=== PATIENT | male | born 1950 | race Caucasian/White ===

== ENCOUNTER 2016-07-13 13:58 | Emergency (ER) | payer MEDICARE, OTHER ==
[~2016-07-13] VITALS: Ht 188 cm; Wt 118.2 kg
[~2016-07-13 13:58] MED LIST: ASCO100T11 PO; ASPI-973 PO; GARL10002 PO; HYDR25TA4 PO; LISI-571 PO; METF500T4 PO; MULT-1018 PO; OMEG1CAP25 PO
[2016-07-13 14:15] VITALS: BP 189/95; PULSE 62; RESP 15; O2SAT 97
--- NOTE | 2016-07-13 15:24 | ED.REPORT ---
HPI-Dizziness / Weakness Date of Service Jul 13, 2016 ED Provider: Dae Briggs MD Pt is a 65 year old male with a hx of HTN, DM II and high cholesterol presenting to the ED complaining of sudden onset dizziness onset this morning. He reports that he felt fine when he woke up at 0830 today. He describes the dizziness as everything in the room was spinning, and he became nauseated and diaphoretic. Denies ringing in his ears, chest pain, numbness, headache, double vision. The dizziness is exacerbated by sitting upright. Denies previous similar symptoms. He states that he was bradycardic when his symptoms began. Nursing Notes Stated Complaint: DIZZY/LOW PULSE Chief Complaint: General Complaint Nursing Notes Reviewed: Yes Allergies: Coded Allergies: Penicillins (Verified Allergy, Severe, Rash,Itching,, 03/25/16) TOLERATES ANCEF Scheduled Ascorbic Acid (Vitamin C) 100 Mg Tablet 1,000 MG PO DAILY Aspirin (Aspirin) 81 Mg Tablet 81 MG PO DAILY Garlic (Garlic) 1,000 Mg Capsule 1,000 MG PO DAILY Hydrochlorothiazide (Hydrochlorothiazide) 25 Mg Tablet 25 MG PO DAILY Lisinopril (Lisinopril) 5 Mg Tablet 10 MG PO DAILY Meclizine (Bonine) 25 Mg Tab.chew 25 MG PO TID Metformin (Metformin) 500 Mg Tablet 500 MG PO BID Multivitamin (Multi Vitamin Daily) 1 Each Tablet 1 EACH PO DAILY [place]-3 Fatty Acids/Fish Oil ([place] 3 Fish Oil Softgel) 1 Each Capsule.dr 1 EACH PO DAILY General Time Seen by MD: 15:05 Chief Complaint Dizzy Hx Obtained From: Patient Arrived By: Walk-in Onset Occurred: Just prior to arrival Symptom Duration: Since onset Location: : No pain Severity: Current: No pain currently Severity: Maximum: No pain Recent Healthcare: No recent doctor visit, No recent hospitalization Similar Sx Previous: No Past Medical History Past Medical History Reports: Diabetes mellitus, Hyperlipidemia, Hypertension, Denies: Coronary artery disease Past Surgical History denies Smoking History Former Smoker Ambulatory Status Independent Review of Systems Ears / Nose / Throat: Denies: Ear ringing bilateral Cardiovascular: Denies: Chest pain GI: Reports: Nausea Skin: Reports Diaphoresis Neurologic: Reports: Dizziness, Denies: Headache, Numbness, Vision change Complete sys rev & neg: except as marked. Physical Exam Initial Vital Signs Vital Signs (First) Date Time Temp Pulse Resp B/P Pulse Ox O2 Delivery O2 Flow Rate FiO2 07/13/16 14:15 36.3 62 15 189/95 97 Room Air Initial VS: Reviewed Abdomen / GI: Soft, Non-tender, No guarding, No rebound, No distention Extremities: Vascular intact, Neuro intact, No swelling, No tenderness Skin: Warm, Dry, No cyanosis Psychiatric: Mood/affect normal, Behavior normal, Normal thought content General/Constitutional: Awake, Alert, No acute distress, Well appearing Head / Eyes: Atraumatic, PERRL Nystagmus fast phase to the left. No facial asymmetry or carotid bruit. No visual field deficits. Respiratory / Chest: Breath sounds NL, Breath sounds = bilat, No respiratory distress, No rales, No rhonchi, No wheezing Cardiovascular: Heart rate NL, Regular rhythm, Heart sounds NL, No gallop, No murmurs, No rubs Heart Rate / Rhythm: Negative: Bradycardia Neurologic: Oriented X3, Speech NL, No motor deficits, No sensory deficits, CN II - XII intact, Cerebellar NL ENT: Tympanic membs NL Interpretation & Diagnostics ECG Interpretation ECG Interpretation: Low voltage precordial leads otherwise normal. Time: 15:32 Interpreted by: ED physician Re-Eval/Medical Decision Med Decision/Clinical Course Reviewed medication list on the computer, it is accurate with the addition of Simvastatin 2 months ago. Re-Evaluation/Progress : Time of Eval: 15:20 Patient Status: Condition improved Re-Evaluation/Progress Note: Discussed plan for discharge. Pt understands and agrees with plan. Counseled Regarding: Diagnosis, Lab results, Need for follow-up, When/why to return to ED Patient Discharge & Departure Impression: Primary Impression: Peripheral vertigo Laterality: right Qualified Code: H81.391 - Other peripheral vertigo, right ear Disposition: Home Discharge Condition All VS Reviewed: Yes Condition: Improved Patient Instructions: Benign Paroxysmal Positional Vertigo (ED) Additional Instructions: See hand out for toyin mijares. This should help shorten duration of symptoms. Doing it will cause increased dizziness at that time. Meclizine 25mg every 8hours as needed for dizziness. Return to ED for severe headache, frequent vomiting, disabling dizziness, one sided weakness or trouble with speech. Follow up with Dr Damian in 2-3 days. Referrals: Erwin Damian MD (PCP) Scribe Attestation Portions of this note were transcribed by Bria Mendez. I, Dr. Briggs personally performed the history, physical exam and medical decision-making; I reviewed and confirmed the accuracy of the information in the transcribed note. Signed by : Patsy Norris, 07/13/2015 and 1655. Erwin Damian MD, Donald L MD Jul 13, 2016 15:24 BRIA MENDEZ Jul 13, 2016 15:36
[2016-07-13] MEDS ORDERED: MECL-114 PO (15:29)
== END 2016-07-13 15:40 | disposition home or self-care (01) ==
LOC: SED 13:58
DX: H81.391 Other peripheral vertigo, right ear (principal); R11.0 Nausea; R61 Generalized hyperhidrosis; R00.1 Bradycardia, unspecified; I10 Essential (primary) hypertension; E11.9 Type 2 diabetes mellitus without complications; E78.5 Hyperlipidemia, unspecified; Z79.82 Long term (current) use of aspirin; Z79.84 Long term (current) use of oral hypoglycemic drugs; Z87.891 Personal history of nicotine dependence; Z88.0 Allergy status to penicillin